=== PATIENT | male | born 1985 | race Caucasian/White ===

== ENCOUNTER 2019-09-04 15:16 | Emergency (ER) | payer SELFPAY ==
[~2019-09-04] VITALS: Ht 172.7 cm; Wt 104.3 kg
[~2019-09-04 15:16] MED LIST: ACET500 PO; ALBU90OI; AMOCLA500 PO; AMOX500 PO; BENZ10TG MT; CLIN150 PO; CLIN300 PO; CODACE30 PO; CRUTCH4 USE; CYCL10 PO; DIPH50 PO; EPIN.3I IM; FAMO20 PO; HYDACE5 PO; IBUP800 PO; KETO10 PO; MUPI2TO TOP; NAPR500 PO; NAPR550 PO; Naprosyn500 MG PO; ONDA4 PO; OXYACE5T PO; PENVK250 PO; PENVK500 PO; PRED20 PO; PROM25 PO; PROM25S PR; Prednisone10 MG PO; RXTRAM50 PO; TRAM50 PO
[2019-09-04] MEDS ORDERED: Percocet 5-3251 EACH PO (16:01)
[2019-09-04] MEDS ORDERED: ONDA4ODT MM (16:01)
== END 2019-09-04 16:40 | disposition home or self-care (01) ==
LOC: ER 15:16
DX: S82.61XA Displaced fracture of lateral malleolus of right fibula, initial encounter for closed fracture (principal); F17.200 Nicotine dependence, unspecified, uncomplicated; Z91.030 Bee allergy status; W01.0XXA Fall on same level from slipping, tripping and stumbling without subsequent striking against object, initial encounter
CPT/HCPCS: 73610; 99283-25

== ENCOUNTER 2021-11-19 11:56 | Emergency (ER) | payer BC ==
[~2021-11-19] VITALS: Ht 167.6 cm; Wt 75.8 kg
[~2021-11-19 11:56] MED LIST changes: +Flomax0.4 MG PO; +ONDA4ODT MM; +Percocet 5-3251 EACH PO
[2021-11-19] MEDS ORDERED: FAMO20 PO (13:03)
[2021-11-19] MEDS ORDERED: EPIPEN0.3 MG/0.1 SC (13:03)
[2021-11-19] MEDS ORDERED: BENADRYL25 M1 PO (13:03)
[2021-11-19] MEDS ORDERED: PRED20 PO (13:03)
== END 2021-11-19 13:09 | disposition home or self-care (01) ==
LOC: ER 11:56
DX: T63.441A Toxic effect of venom of bees, accidental (unintentional), initial encounter (principal); F17.210 Nicotine dependence, cigarettes, uncomplicated; Z91.030 Bee allergy status; Z79.899 Other long term (current) drug therapy
CPT/HCPCS: A9270; J1100

== ENCOUNTER 2024-07-04 18:50 | Emergency (ER) | payer BC ==
[~2024-07-04] VITALS: Ht 177.8 cm; Wt 104.3 kg
[~2024-07-04 18:50] MED LIST changes: +BENADRYL25 M1 PO; +EPIPEN0.3 MG/0.1 SC
[2024-07-04 18:58] VITALS: BP 155/100
== END 2024-07-04 20:05 | disposition home or self-care (01) ==
LOC: ER 18:50
DX: S89.91XA Unspecified injury of right lower leg, initial encounter (principal); F17.210 Nicotine dependence, cigarettes, uncomplicated; X50.9XXA Other and unspecified overexertion or strenuous movements or postures, initial encounter; Z79.52 Long term (current) use of systemic steroids; Z79.899 Other long term (current) drug therapy; Z91.030 Bee allergy status
CPT/HCPCS: 73562-RT; 99283-25